=== PATIENT | female | born 1985 | race Hispanic/Latino ===

== ENCOUNTER 2019-07-25 16:34 | Observation (INO) | payer SELFPAY ==
[2019-07-25] MEDS ORDERED: NACL 0.9% 1000 ML 1,000 ML IV ONE ×2 (16:46→17:50)
--- NOTE | 2019-07-25 16:52 | Emergency Department Report ---
<STANFORDJONAH - Last Filed: 07/26/19 03:34> ED General Adult HPI - General Stated complaint: UNRESPONSIVE Time Seen by Provider: 07/25/19 16:46 - Related Data Previous Rx's Medication Instructions Recorded Last Taken Type HYDROcodone/APAP 5-325 [[place] 1 - 2 each PO Q4HR PRN #20 tablet 07/26/19 Unknown Rx 5/325] Allergies Allergy/AdvReac Type Severity Reaction Status Date / Time No Known Allergies Allergy Unverified 07/25/19 17:39 ED Past Medical Hx - Medications Home Medications: Home Medications Medication Instructions Recorded Confirmed Last Taken Type HYDROcodone/APAP 5-325 [[place] 1 - 2 each PO Q4HR PRN #20 tablet 07/26/19 Unknown Rx 5/325] ED Medical Decision Making - Lab Data Result diagrams: 07/25/19 22:41 07/25/19 17:08 - Medical Decision Making Dr. Alston contacted on-call physician Dr. Olguin in order to expedite care for patient. I reviewed findings with Dr. Olguin. He agreed that the patient needed surgical exploration. He asked me to arrange for type and cross 2 units of packed red blood cells. Dr. Olguin will speak with journeyman powerhouse operator to arrange operative intervention. ED Disposition Clinical Impression: Pelvic pain, , Ruptured ectopic Disposition: OP ADMIT IP TO THIS HOSP Condition: Stable <CAROL OWENS - Last Filed: 07/26/19 16:14> ED General Adult HPI - History of Present Illness Initial comments: Patient is 33 years old female with history of heroine addiction. Patient brought to the emergency room by her boyfriend. Initial presentation in the ER, patient was unresponsive to voice stimuli. Patient boyfriend stated that they were having sex when she started having a lot of pain and then she passed out. Patient became more alert and able to provide more history. Patient stated that she used heroin this morning but small amount because she cannot afford more. Patient is complaining of pelvic pain but denied any vaginal bleeding. Patient also denied any chest pain or shortness of breath or abdominal pain. No fever or chills. Patient initial blood pressure is 89/52. ED Review of Systems ROS: Stated complaint: UNRESPONSIVE Other details as noted in HPI Comment: All other systems reviewed and negative Constitutional: denies: chills, fever Respiratory: denies: cough, shortness of breath, SOB with exertion, SOB at rest Cardiovascular: denies: chest pain, palpitations Gastrointestinal: denies: abdominal pain, nausea, vomiting, diarrhea, con stipation, hematemesis, melena, hematochezia Neurological: weakness. denies: headache ED Physical Exam - General General appearance: alert, in no apparent distress - Head Head exam: Present: atraumatic, normocephalic, normal inspection - Eye Eye exam: Present: normal appearance, PERRL - ENT ENT exam: Present: normal exam, normal orophraynx, mucous membranes moist - Neck Neck exam: Present: normal inspection, full ROM. Absent: tenderness, meningism us, lymphadenopathy, thyromegaly - Respiratory Respiratory exam: Present: normal lung sounds bilaterally - Cardiovascular Cardiovascular Exam: Present: regular rate, normal rhythm, normal heart sounds - GI/Abdominal GI/Abdominal exam: Present: soft, normal bowel sounds. Absent: distended, tenderness, guarding, rebound, rigid, organomegaly, mass, bruit, pulsatile mass, hernia - Extremities Exam Extremities exam: Present: normal inspection, full ROM, normal capillary refill - Back Exam Back exam: Present: normal inspection, full ROM. Absent: CVA tenderness (R), CVA tenderness (L), muscle spasm, paraspinal tenderness, vertebral tenderness - Neurological Exam Neurological exam: Present: alert, oriented X3, CN II-XII intact, reflexes normal - Psychiatric Psychiatric exam: Present: normal mood - Skin Skin exam: Present: warm, intact, normal color ED Course Vital Signs 07/25/19 07/25/19 07/25/19 16:50 17:00 17:49 Temperature 97.6 F Pulse Rate 87 89 84 Respiratory 14 15 15 Rate Blood Pressure Blood Pressure 97/48 97/45 110/53 [Left] O2 Sat by Pulse 96 100 100 Oximetry 07/25/19 07/25/19 07/25/19 21:41 22:07 22:11 Temperature Pulse Rate 93 H 87 94 H Respiratory 19 17 17 Rate Blood Pressure 112/53 112/53 112/53 Blood Pressure [Left] O2 Sat by Pulse 100 98 98 Oximetry 07/25/19 07/25/19 07/25/19 22:21 22:31 22:41 Temperature Pulse Rate 87 80 90 Respiratory 14 22 16 Rate Blood Pressure 112/53 112/53 112/53 Blood Pressure [Left] O2 Sat by Pulse 98 87 100 Oximetry 07/25/19 07/25/19 07/25/19 22:51 23:01 23:11 Temperature Pulse Rate 79 80 Respiratory 15 15 Rate Blood Pressure 112/53 112/53 112/53 Blood Pressure [Left] O2 Sat by Pulse 99 97 98 Oximetry 07/25/19 07/25/19 07/25/19 23:21 23:31 23:41 Temperature Pulse Rate Respiratory Rate Blood Pressure 112/53 112/53 112/53 Blood Pressure [Left] O2 Sat by Pulse 97 100 98 Oximetry 07/25/19 07/26/19 07/26/19 23:51 00:00 00:11 Temperature Pulse Rate Respiratory Rate Blood Pressure 112/53 106/61 106/61 Blood Pressure [Left] O2 Sat by Pulse 97 98 98 Oximetry 07/26/19 07/26/19 07/26/19 00:20 02:23 02:31 Temperature Pulse Rate 70 78 Respiratory 17 11 L Rate Blood Pressure 106/61 107/49 107/49 Blood Pressure [Left] O2 Sat by Pulse 98 99 100 Oximetry 07/26/19 07/26/19 07/26/19 02:41 02:51 03:01 Temperature Pulse Rate 69 74 78 Respiratory 13 12 17 Rate Blood Pressure 107/49 106/61 106/61 Blood Pressure [Left] O2 Sat by Pulse 98 99 98 Oximetry 07/26/19 07/26/19 07/26/19 03:11 03:21 03:31 Temperature Pulse Rate 70 69 71 Respiratory 11 L 14 15 Rate Blood Pressure 106/61 106/61 106/61 Blood Pressure [Left] O2 Sat by Pulse 100 99 98 Oximetry 07/26/19 07/26/19 07/26/19 03:41 03:51 04:00 Temperature Pulse Rate 71 65 66 Respiratory 20 12 16 Rate Blood Pressure 106/61 106/61 100/52 Blood Pressure [Left] O2 Sat by Pulse 98 99 98 Oximetry 07/26/19 07/26/19 07/26/19 04:11 04:20 04:31 Temperature Pulse Rate 69 67 76 Respiratory 17 19 11 L Rate Blood Pressure 100/52 100/52 Blood Pressure [Left] O2 Sat by Pulse 99 100 100 Oximetry ED Medical Decision Making - Lab Data Result diagrams: 07/26/19 12:38 07/25/19 17:08 - Radiology Data Radiology results: report reviewed - Medical Decision Making Patient is 33 years old female with history of heroine addiction. Patient brought to the emergency room by her boyfriend. Initial presentation in the ER, patient was unresponsive to voice stimuli. Patient boyfriend stated that they were having sex when she started having a lot of pain and then she passed out. Patient became more alert and able to provide more history. Patient stated that she used heroin this morning but small amount because she cannot afford more. Patient is complaining of pelvic pain but denied any vaginal bleeding. Patient also denied any chest pain or shortness of breath or abdominal pain. No fever or chills. Patient initial blood pressure is 89/52. Patient evaluated by me multiple times. Patient received 2 L of normal saline patient stated that she feels much better. Patient sitting up talking to her boyfriend in no acute distress. Patient states hCG is 300. Pelvic ultrasound is negative for ectopic . I discussed the patient is Dr. Alston, she advised to repeat the ultrasound to make sure that there is no new-collection of blood. Repeated ultrasound showed a great concern for ectopic . Please refer to the ultrasound report. I discussed the patient again with , she stated that she is coming to evaluate the patient for surgery. Critical Care Time: Yes Critical care time in (mins) excluding proc time.: 45 Critical care attestation.: If time is entered above; I have spent that time in minutes in the direct care of this critically ill patient, excluding procedure time. ED Disposition Is pt being admited?: Yes
[2019-07-25 17:24] LABS: Hematocrit 37.6 % (30.3-42.9); Hemoglobin 12.2 gm/dl (10.1-14.3); Mean Corpuscular HGB Conc 33 % (30-34); Mean Corpuscular Volume 88 fl (79-97); Platelet Count 366 K/mm3 (140-440); Red Blood Count 4.26 M/mm3 (3.65-5.03); Red Cell Distribution Width 13.4 % (13.2-15.2)
[2019-07-25 17:43] LABS: Alanine Aminotransferase 31 units/L (7-56); Albumin 4.1 g/dL (3.9-5); BUN/Creatinine Ratio 16; Blood Urea Nitrogen 14 mg/dL (7-17); Calcium 9.3 mg/dL (8.4-10.2); Hemolysis Index 6
[2019-07-25 17:44] LABS: Bilirubin,Direct < 0.2 mg/dL (0-0.2)
[2019-07-25] MEDS ORDERED: ZOSYN/NS 3.375GM/50ML 3.375 GM/50 ML BAG IV ONE (20:41)
[2019-07-25 20:45] LABS: Anisocytosis 1+; Basophils % (Manual) 0 % (0.0-1.8); Total Cells Counted 200
[2019-07-25 20:46] LABS: Platelet Estimate Consistent w Auto
--- NOTE | 2019-07-25 20:48 | Ultrasound Report ---
CLINICAL DATA: abdominal pain, rule out ectopic . TECHNICAL DATA: Real-time imaging of the pelvic structures were performed along with Doppler imaging of the adnexa FINDINGS: The uterus is of normal size and echogenicity. There are no uterine masses. Endometrial thickness is within normal limits The right and left ovaries are of symmetric size and echogenicity. There are no ovarian or adnexal ma sses. Doppler imaging demonstrates normal vascular flow to both ovaries. There is no significant quantity of free fluid dependently within the pelvis. IMPRESSION: Unremarkable routine ultrasound. No definite evidence of an ectopic . Recommend clinical cor relation and correlation with hCGs WOMEN OF REPRODUCTIVE AGE: 1. Cysts <=3 cm: Normal physiologic findings; at the discretion of the interpreting physician whether or not to describe them in the imaging report; do not need follow-up. 2. Cysts >3 and <=5 cm: Should be described in the imaging report with a statement that they are almo st certainly benign; do not need follow-up. 3. Cysts >5 and <=7 cm: Should be described in the imaging report with a statement that they are almo st certainly benign; yearly follow-up with US recommended. 4. Cysts >7 cm: Since these may be difficult to assess completely with US, further imaging with magne tic resonance (MR) or surgical evaluation should be considered. POSTMENOPAUSAL WOMEN: 1. Cysts <=1 cm: Are clinically inconsequential; at the discretion of the interpreting physician whet her or not to describe them in the imaging report; do not need follow-up. 2. Cysts >1 and <=7 cm: Should be described in the imaging report with statement that they are almost certainly benign; yearly follow-up, at least initially, with US recommended. Some practices may opt to increase the lower size threshold for follow-up from 1 cm to as high as 3 cm. One may opt to radha nue follow-up annually or to decrease the frequency of follow-up once stability or decrease in size h as been confirmed. Cysts in the larger end of this range should still generally be followed on a regu lar basis. 3. Cysts >7 cm: Since these may be difficult to assess completely with US, further imaging with MR or surgical evaluation should be considered. Signer Name: Tacho Hall MD Signed: 07/25/2019 8:44 PM Workstation Name: [id number]
[2019-07-25] MEDS ORDERED: TYLENOL PO ONE (21:44)
[2019-07-25] MEDS ORDERED: TYLENOL ONE (21:48)
[2019-07-25 22:17] LABS: Amphetamine Screen,Urine PRESUMPTIVE NEGATIVE; Benzodiazepines Screen,Urine PRESUMPTIVE NEGATIVE; Cannabinoid Screen,Urine PRESUMPTIVE NEGATIVE; Methadone Screen,Urine PRESUMPTIVE NEGATIVE
[2019-07-25 22:25] LABS: Bacteria,Urine 1+ /HPF (Negative); Bilirubin,Urine NEG (Negative); Blood,Urine SM (Negative); Color,Urine Yellow (Yellow); Mucus,Urine FEW /HPF; Protein,Urine <15 mg/dL mg/dL (Negative); Urobilinogen,Urine < 2.0 mg/dL (<2.0)
[2019-07-25 22:30] LABS: Cocaine Screen,Urine PRESUMPTIVE POSITIVE; Opiate Screen,Urine PRESUMPTIVE POSITIVE
[2019-07-25 22:56] LABS: Basophils % (Auto) 0.2 % (0.0-1.8); Hematocrit 28.4 % (30.3-42.9); Hemoglobin 9.7 gm/dl (10.1-14.3); Lymphocytes # (Auto) 1.7 K/mm3 (1.2-5.4); Lymphocytes % (Auto) 12.9 % (13.4-35.0); Mean Corpuscular HGB Conc 34 % (30-34); Mean Corpuscular Volume 88 fl (79-97); Monocytes # (Auto) 0.4 K/mm3 (0.0-0.8); Monocytes % (Auto) 3.1 % (0.0-7.3); Platelet Count 244 K/mm3 (140-440); Red Blood Count 3.22 M/mm3 (3.65-5.03); Red Cell Distribution Width 12.8 % (13.2-15.2)
--- NOTE | 2019-07-26 02:10 | Ultrasound Report ---
Pelvic ultrasound INDICATION: Positive test, pelvic pain COMPARISON: Study earlier tonight Transabdominal and endovaginal studies were performed. Uterus measures 6. Centimeters in length on transabdominal study and on endovaginal study the endomet rial canal measures 9 mm. I do not see evidence of intrauterine . Right ovary measures 2.6 cm in length and shows small follicular-type cysts. Left ovary measures 2.5 cm in length and shows small follicular-type cysts. Adjacent to the left ovary is a possible mildly d ilated tube. No discrete adnexal mass is seen though there is some altered echogenicity adjacent to t he left ovary. Moderate amount of free fluid is seen in the pelvis in both adnexal areas and the cul-de-sac. This co ntains diffuse internal echoes as can be seen with bloody fluid. IMPRESSION: In the setting of a positive test with no evidence of intrauterine an d moderate bloody type fluid, I am significantly concerned for the possibility of ectopic w ith rupture though I do not actually see the ectopic . CRITICAL RESULT: Time of Discovery: 56 Time of Communication: 0104 Licensed Practitioner Receiving Report: Dr. Saravanan Herrera Read Back Performed: not pertinent Signer Name: Philip Smith MD Signed: 07/26/2019 2:05 AM Workstation Name: [email or web address]
[2019-07-26] MEDS ORDERED: MORPHINE IV ONE (02:50)
[2019-07-26] MEDS ORDERED: ZOFRAN IV ONE (02:50)
[2019-07-26] MEDS ORDERED: NACL 0.9% 1000 ML 1,000 ML IV ONE (02:50)
[2019-07-26] MEDS ORDERED: ZOFRAN ONE ×2 (02:53→04:37)
[2019-07-26] MEDS ORDERED: NACL 0.9% 1000 ML 1,000 ML ONE ×2 (02:53→08:57)
[2019-07-26] MEDS ORDERED: MORPHINE ONE (02:53)
[2019-07-26] MEDS ORDERED: NACL 0.9% 500 ML 500 ML IV ONE (03:33)
[2019-07-26 04:01] LABS: INR 1.14 (0.87-1.13)
[2019-07-26 04:03] LABS: Partial Thromboplastin Time 31.6 Sec. (24.2-36.6)
[2019-07-26] MEDS ORDERED: QUELICIN ONE (04:37)
[2019-07-26] MEDS ORDERED: KETAMINE 50 MG/ML-WATER SYRING ONE (04:37)
[2019-07-26] MEDS ORDERED: ZEMURON IV ONE (04:37)
[2019-07-26] MEDS ORDERED: DECADRON ONE (04:37)
[2019-07-26] MEDS ORDERED: XYLOCAINE MPF 2% ONE (04:37)
[2019-07-26] MEDS ORDERED: SUBLIMAZE ONE (04:37)
[2019-07-26] MEDS ORDERED: DIPRIVAN 10 MG/ML IV ONE (04:37)
--- NOTE | 2019-07-26 04:50 | History and Physical Report ---
History of Present Illness Date of examination: 07/26/19 Date of admission: 07/25/2019 Chief complaint: Low abdominal pain x 1 day History of present illness: Patient is 33 years old female with history of heroine addiction. Patient brought to the emergency room by her boyfriend. Initial presentation in the ER, patient was unresponsive to voice stimuli. Patient boyfriend stated that they were having sex when she started having a lot of pain and then she passed out. Patient became more alert and able to provide more history. Patient stated that she used heroin this morning but small amount because she cannot afford more. Patient is complaining of pelvic pain but denied any vaginal bleeding. Patient also denied any chest pain or shortness of breath or abdominal pain. No fever or chills. Patient initial blood pressure is 89/52. . Vaginal delivery 17 yrs ago. LMP was 07/11/2019. Past History Past Surgical History: no surgical history Social history: IV drug use - Obstetrical History : 2 Para: 1 Medications and Allergies Allergies Allergy/AdvReac Type Severity Reaction Status Date / Time No Known Allergies Allergy Unverified 07/25/19 17:39 Review of Systems All systems: negative Gastrointestinal: abdominal pain Genitourinary: pelvic pain Neurological: no confusion - Vital Signs Vital signs: Vital Signs Temp Pulse Resp BP Pulse Ox 97.6 F 87 14 97/48 96 07/25/19 16:50 07/25/19 16:50 07/25/19 16:50 07/25/19 16:50 07/25/19 16:50 Temp Pulse Resp BP Pulse Ox 97.6 F 84 15 110/53 100 07/25/19 16:50 07/25/19 17:49 07/25/19 17:49 07/25/19 17:49 07/25/19 17:49 - Physical Exam Breasts: Positive: deferred Cardiovascular: Regular rate Lungs: Positive: Clear to auscultation Abdomen: Positive: tenderness Genitourinary (Female): Positive: other (For exam under anesthesia.) Results Result Diagrams: 07/25/19 22:41 07/25/19 17:08 Abnormal lab results 07/25/19 07/25/19 07/25/19 Range/Units 17:00 17:00 17:00 WBC 27.3 H (4.5-11.0) K/mm3 RBC (3.65-5.03) M/mm3 Hgb (10.1-14.3) gm/dl Hct (30.3-42.9) % RDW (13.2-15.2) % Lymph % (Auto) (13.4-35.0) % Seg Neutrophils % (40.0-70.0) % Seg Neuts % (Manual) 82.0 H (40.0-70.0) % Lymphocytes % (Manual) 13.0 L (13.4-35.0) % Seg Neutrophils # (1.8-7.7) K/mm3 Seg Neutrophils # Man 22.4 H (1.8-7.7) K/mm3 Monocytes # (Manual) 1.1 H (0.0-0.8) K/mm3 INR (0.87-1.13) Glucose (65-100) mg/dL HCG, Quant (0-4) mIU/mL Salicylates < 0.3 L (2.8-20.0) mg/dL Acetaminophen < 5.0 L (10.0-30.0) ug/mL 07/25/19 07/25/19 07/25/19 Range/Units 17:08 18:48 22:41 WBC 13.1 H (4.5-11.0) K/mm3 RBC 3.22 L (3.65-5.03) M/mm3 Hgb 9.7 L (10.1-14.3) gm/dl Hct 28.4 L D (30.3-42.9) % RDW 12.8 L (13.2-15.2) % Lymph % (Auto) 12.9 L (13.4-35.0) % Seg Neutrophils % 83.8 H (40.0-70.0) % Seg Neuts % (Manual) (40.0-70.0) % Lymphocytes % (Manual) (13.4-35.0) % Seg Neutrophils # 11.0 H (1.8-7.7) K/mm3 Seg Neutrophils # Man (1.8-7.7) K/mm3 Monocytes # (Manual) (0.0-0.8) K/mm3 INR (0.87-1.13) Glucose 209 H (65-100) mg/dL HCG, Quant 300.4 H (0-4) mIU/mL Salicylates (2.8-20.0) mg/dL Acetaminophen (10.0-30.0) ug/mL 07/26/19 Range/Units 02:55 WBC (4.5-11.0) K/mm3 RBC (3.65-5.03) M/mm3 Hgb (10.1-14.3) gm/dl Hct (30.3-42.9) % RDW (13.2-15.2) % Lymph % (Auto) (13.4-35.0) % Seg Neutrophils % (40.0-70.0) % Seg Neuts % (Manual) (40.0-70.0) % Lymphocytes % (Manual) (13.4-35.0) % Seg Neutrophils # (1.8-7.7) K/mm3 Seg Neutrophils # Man (1.8-7.7) K/mm3 Monocytes # (Manual) (0.0-0.8) K/mm3 INR 1.14 H (0.87-1.13) Glucose (65-100) mg/dL HCG, Quant (0-4) mIU/mL Salicylates (2.8-20.0) mg/dL Acetaminophen (10.0-30.0) ug/mL All other labs normal. Ultrasound: report reviewed Assessment and Plan - Patient Problems (1) Positive test Current Visit: Yes Status: Acute (2) Hemoperitoneum Current Visit: Yes Status: Acute (3) Pelvic pain Current Visit: Yes Status: Acute (4) Current Visit: Yes Status: Acute (5) Ruptured ectopic Current Visit: Yes Status: Acute Plan to address problem: The clinical situation was fully discussed with patient. She understood the necessity to explore her peritoneal cavity to be able to make a diagnosis and to treat discovered abnormality, if needed. All her questions were answered after learning of risks and she gave her consent to proceed with surgery. Patient will have an exploratory laparoscopy and necessary procedures.
[2019-07-26] MEDS ORDERED: XYLOCAINE 1% 20 mL ONE (05:00)
[2019-07-26] MEDS ORDERED: MARCAINE 0.5% INFILTRATI ONE (05:01)
[2019-07-26] MEDS ORDERED: MARCAINE-EPI 0.5%-1:200,000 INFILTRATI ONE (05:01)
[2019-07-26] MEDS ORDERED: ANCEF ONE (06:04)
--- NOTE | 2019-07-26 06:17 | Anesthesia Consultation ---
Anesthesia Consult and Med Hx Date of service: 07/26/19 - Airway Anesthetic Teeth Evaluation: Poor (denies loose teeth) ROM Head & Neck: Adequate Mental/Hyoid Distance: Adequate Mallampati Class: Class II Intubation Access Assessment: Probably Good - Pulmonary Exam CTA: Yes - Cardiac Exam Cardiac Exam: RRR (grade II systolic murmur) - Pre-Operative Health Status ASA Pre-Surgery Classification: ASA3, Emergency Proposed Anesthetic Plan: General - Pulmonary Hx Smoking: Yes (1PPD) Hx Respiratory Symptoms: No - Cardiovascular System Hx Hypertension: No Hx Heart Attack/AMI: No Hx Cardia Arrhythmia: No - Central Nervous System CVA: No - Gastrointestinal Hx Gastroesophageal Reflux Disease: No - Endocrine Hx Renal Disease: No Hx Liver Disease: Yes (HCV; denies hx liver failure) Hx Insulin Dependent Diabetes: No Hx Non-Insulin Dependent Diabetes: No Hx Thyroid Disease: No - Hematic Hx Anemia: Yes (2 units pRBCs available) - Other Systems Hx Substance Use: Yes (heroin (last use 9/11 AM); cocaine (last use 1wk ago)) Hx Obesity: No - Additional Comments Anesthesia Medical History Comments: No hx anesthetic complications. Presented with syncope and abdominal pain, found to have possible ectopic . Reports regular heroin use and occasional cocaine. UDS positive for opioids and cocaine though patient states she has not knowingly used cocaine in >1wk.
[2019-07-26] MEDS ORDERED: ZOFRAN IV PRN (06:18)
[2019-07-26] MEDS ORDERED: DILAUDID IV PRN (06:18)
--- NOTE | 2019-07-26 06:18 | Anesthesia Day of Surgery ---
Anesthesia Day of Surgery - Day of Surgery Patient Examined: Yes Patient H&P Reviewed: Yes Patient is NPO: Yes (last clear liquids 99. No recent N/V.)
[2019-07-26] MEDS ORDERED: BRIDION IV ONE (07:16)
[2019-07-26] MEDS ORDERED: DILAUDID ONE (07:56)
--- NOTE | 2019-07-26 07:56 | Operative Report ---
Operative Report Operative Report: Date of surgery: 07/26/2019 Admitting diagnosis: Pelvic pain, hemoperitoneum, left adnexal mass, positive test, no intrauterine . Presumed ectopic . Postoperative diagnoses: The same: Left tubal ectopic . Procedures: Exploratory laparoscopy, aspiration of extensive hemoperitoneum, left salpingectomy. Surgeon:MD Clau Anesthesiologist: Sanchez Minor Anesthesia: Gen. anesthesia EBL: The surgical procedure itself accounted for less than 2 mL of blood loss. Complications: None Findings: There was a massive hemoperitoneum with evidence of ongoing active bleeding at the time of entrance into the peritoneal cavity. A 1400 mL of hemoperitoneum was aspirated. It was estimated that at least 200 more cc of hemoperitoneum remained unobtainable. Both ovaries were grossly normal as was the uterus. The right fallopian tube was grossly normal. There was a bulbous s welling in the isthmic region of the left fallopian tube which was noted to be bleeding. There were no visible adhesions within the peritoneal cavity. The omentum and bowels as well as the liver and gallbladder as could be seen through the laparoscope were all grossly normal. Procedure details: The patient was taken to the operating room and put under general anesthesia. In the lithotomy position the patient was prepped in the vulva vagina and abdomen. The drapes were placed. A timeout was done. The cervix was stabilized with a single tooth tenaculum forceps which were used to hold an acorn cannula. An indwelling Hutchinson catheter was inserted. With the go ahead from the tipple operator, a subumbilical stab incision was made. The Veress needle was carefully inserted into the peritoneal cavity making sure to point the tip of this instrument towards the free hollow of the pelvis. The Veress needle was initially aspirated and no blood was drawn. The Veress needle was then flushed through with a small quantity of sterile normal saline without any resistance. The general peritoneal cavity was then insufflated with about 2.5 L of carbon dioxide. The 5 mm ports was placed allowing the laparoscope reinserted. Under laparoscopic view a 10 mm port was placed in the right flank. Finally another 5 mm port was placed in the left flank. The findings through the laparoscope and reported. To allow for visibility the hemoperitoneum was aspirated as best as possible with the patient in Trendelenburg position. This allowed the pelvic structures to be thoroughly examined. The bleeding structure contained within the left fallopian tube was identified. The left fallopian tube was then excised from the fimbria to the cornual aspect using the LigaSure. There was no intraperitoneal bleeding as a result of the procedure itself. The patient was then placed in reverse Trendelenburg allowing more hemoperitoneum to be aspirated. The surgical field was irrigated with sterile normal saline and revealed no bleeding from the surgical field. The peritoneal side of the access ports were examined and were all hemostatic. The pneumoperitoneum was expelled. The stab incision on the right flank was closed with 2-0 Vicryl. The 25 mm ports were closed with Dermabond. All sponges and instruments were accounted for. The patient tolerated the procedure well. There were no complications. The estimated blood loss from the surgical procedure itself was less than 2 mL. The patient was transferred in very good condition to the recovery room.
[2019-07-26] MEDS ORDERED: REGLAN IV PRN (09:00)
[2019-07-26] MEDS ORDERED: NACL 0.9% 1000 ML 1,000 ML IV SCH (09:00)
[2019-07-26] MEDS ORDERED: ZOFRAN ODT PO PRN (09:00)
--- NOTE | 2019-07-26 10:25 | Post Anesthesia Evaluation ---
- Post Anesthesia Evaluation Patient Participated: Yes Airway Patent: Yes Stable Respiratory Function: Yes Nausea/Vomiting: No Temp > 96.8F: Yes Pain Manageable: Yes Adequeate Hydration: Yes Anesthesia Complications: No Other Comments: Received 2 units pRBCs perioperatively. No signs of transfusion reaction. HD stable at time of transfer to floor.
[2019-07-26] MEDS: MORPHINE IV PRN ×2 (10:34→15:20)
[2019-07-26 13:17] LABS: Basophils % (Auto) 0.1 % (0.0-1.8); Eosinophils % (Auto) 0.1 % (0.0-4.3); Hemoglobin 10.5 gm/dl (10.1-14.3); Lymphocytes # (Auto) 1.2 K/mm3 (1.2-5.4); Lymphocytes % (Auto) 9.6 % (13.4-35.0); Mean Corpuscular HGB Conc 34 % (30-34); Mean Corpuscular Volume 87 fl (79-97); Monocytes # (Auto) 0.2 K/mm3 (0.0-0.8); Monocytes % (Auto) 1.4 % (0.0-7.3); Platelet Count 217 K/mm3 (140-440); Red Blood Count 3.58 M/mm3 (3.65-5.03); Red Cell Distribution Width 13.7 % (13.2-15.2)
[2019-07-26 19:44] VITALS: BP 110/58
== END 2019-07-26 18:30 | disposition home or self-care (01) ==
LOC: EDBD → ED 16:34 → OB 07-26 07:28
PROVIDERS: ADMIT Obstetrics & Gynecology; ATTEND Obstetrics & Gynecology
DX: O00.102 Left tubal pregnancy without intrauterine pregnancy (principal); O26.891 Other specified pregnancy related conditions, first trimester; K66.1 Hemoperitoneum; Z3A.01 Less than 8 weeks gestation of pregnancy
CPT/HCPCS: 36415; 36430; 59151; 76801; 76817; 80048; 80076; 80307; 81001; 84702; 84703; 85007; 85025; 85610; 85730; 86850; 86900; 86901; 86920; 87040; 88305; 96365; 96375; 96376; 99291; G0378; J0330; J0690; J1100; J1170; J2270; J2405; J2543; J2704; J3010; J7030; P9016; 80320; G0480; Q0162